=== PATIENT | male | born 1995 | race Caucasian/White ===

== ENCOUNTER 2025-07-30 22:20 | Emergency (ER) | payer SELFPAY ==
[2025-07-30 22:21] VITALS: BP 197/126
[2025-07-30 22:41] VITALS: BMI 30.6
[2025-07-30 22:49] VITALS: BP 174/120
[2025-07-30 23:00] VITALS: BP 180/118
[2025-07-30 23:06] LABS: Hematocrit 43.5 % (39.0-52.0); Hemoglobin 14.5 g/dL (13.0-18.0); Mean Corp Hgb Conc. 33.3 g/dL (33.0-37.0); Mean Corpuscular Volume 92.9 fL (80.0-94.0); Nucleated Red Blood Cells % 0 % (-); Platelet Count 252 10^3/uL (130-400); Red Cell Dist. Width 12.6 % (11.5-14.5)
[2025-07-30 23:25] LABS: ALT (SGPT) 52 U/L (0-50); AST (SGOT) 40 U/L (17-59); Albumin 4.9 g/dl (3.5-5.0); Alkaline Phosphatase 72 U/L (38-126); Blood Urea Nitrogen 7 mg/dl (9-20); Calcium 9.6 mg/dl (8.4-10.2); Carbon Dioxide 30 mmol/L (22-30); Chloride 98 mmol/L (98-107); Estimated Creatinine Clearance > 125 ml/min; Glucose 103 mg/dl (70-99); Potassium 4.6 mmol/L (3.5-5.1); Sodium 137 mmol/L (135-145); Total Protein 7.7 g/dl (6.3-8.2); eGFR > 60.00
[2025-07-30 23:38] LABS: Troponin I < 0.012 ng/ml
[2025-07-30] MEDS: NITROSTAT (SUBLINGUAL) 0.4 MG SL (23:57)
[2025-07-31 00:14] VITALS: BP 162/99
[2025-07-31] MEDS: NITROSTAT (SUBLINGUAL) 0.4 MG SL ×2 (00:23→00:38)
--- NOTE | 2025-07-31 00:27 | ED.GENMED ---
History of Present Illness
General
Chief Complaint: Blood Pressure Problem
Source: patient
Exam Limitations: none
Time Seen by Provider: 07/30/25 23:05
Nursing documentation reviewed up to this point in time: agreed with
History of Present Illness
History of Present Illness:
30-year-old male past [facility] of hypertension daily drinker presenting to the emergency department today with concerns of chest pressure associated shortness of breath ongoing throughout the day today. Has been off his blood pressure medications
over the past 3 weeks typically takes amlodipine benazepril 5-20. Denies any recent trauma surgery immobilization no history of blood clots. Does drink 12 alcoholic beverages daily. Describes the chest pain as a pressure without specific
radiation. Not specifically exertional.
Review of Systems
Review of Systems
Allergies reviewed?: Yes
All Other Systems: ROS reviewed and negative except as documented in HPI and ROS
Phy Exam
Physical Exam
Physical Exam:
GENERAL: Alert , in no apparent distress
EYE: pupils equal and reactive
NECK: Supple, no significant adenopathy.
ENT: o/p clr, mmm.
CARDIAC: Regular rate and rhythm .
LUNGS: Clear breath sounds bilaterally, no acute respiratory distress, no wheezes/rales/rhonchi
ABDOMEN: Soft, without focal tenderness, no r/g, no cvat
NEUROLOGICAL: Alert and oriented, no focal neuro deficits
SKIN: Warm and dry, skin intact.
MUSCULOSKELETAL: No edema, well perfused.
PSYCH: Normal and appropriate interaction.
Course
Orders/Labs/Results
Orders:
Orders
07/30/25 22:24
Crisis Consult Urgent
Reason for Consult: depression ?SI
07/30/25 22:25
EKG [Electrocardiogram (*1)] Urgent
Reason for Study: Chest Pain
EKG- Treatment ONCE
07/30/25 22:57
Complete Blood Count/With Diff Urgent
Comprehensive Metabolic Panel Urgent
Troponin I Urgent
07/30/25 23:47
D-Dimer Urgent
07/30/25 23:53
Urine Drug Abuse Screen Urgent
Date Specimen was Collected: 07/30/25
Time Specimen was Collected: 23:55
Nitroglycerin Sublingual [Nitrostat (Sublingual)] 0.4 mg SL [id number] PRN
07/31/25 00:05
CR Chest - 2 Views Urgent
Reason For Exam: cp
07/31/25 01:41
EKG [Electrocardiogram (*1)] Urgent
Reason for Study: Chest Pain
EKG- Treatment ONCE
07/31/25 02:08
Troponin I Urgent
Abnormal Lab Results
07/30/25
22:57
RBC 4.68 L 10^6/uL
(4.70-6.10)
Absolute Monos (auto) 0.8 H 10^3/uL
(0.1-0.6)
Monocytes % 11.2 H %
(1.7-9.3)
BUN 7 L mg/dl
(9-20)
Glucose 103 H mg/dl
(70-99)
ALT 52 H U/L
(0-50)
07/30/25 22:57
07/30/25 22:57
Vital Signs
Initial and Last Documented VS:
Initial Vital Signs
Temp Pulse Resp BP Pulse Ox
98.5 F 106 22 197/126 98
07/30/25 22:21 07/30/25 22:21 07/30/25 22:21 07/30/25 22:21 07/30/25 22:21
Last Documented Vital Signs
Temp Pulse Resp BP Pulse Ox
98.5 F 75 15 145/96 96
07/30/25 22:21 07/31/25 01:15 07/31/25 01:15 07/31/25 01:00 07/31/25 01:15
MDM/Problems Addressed
MDM/Problems Addressed:
30-year-old male presenting to the emergency department today with concerns of chest pressure without specific radiation associated shortness of breath starting this morning. Does have a history of high blood pressure and has been off his normally
prescribed amlodipine benazepril over the past 3 weeks after moving from [place]. Does drink 12 alcoholic beverages daily. Here blood pressure elevated but patient was off medications for 3 weeks patient was given dose of nitro with very minimal
chest pain afterward with blood pressure improving. Symptoms very minimal throughout ER stay. No shortness of breath patient very comfortable on exam. Remainder vital signs normal. Labs unremarkable troponin negative x 2 D-dimer negative as
well. EKG nonischemic and unchanged with multiple EKGs here. Chest x-ray normal. Patient appears to be low risk for ACS very low risk for PE advised for close outpatient follow-up. Returm Precautions given.
*Pulse Oximetry
SaO2: 97
Oxygen Mode of Delivery: Room air
Patient hypoxic: no (96)
*Critical Care Note
Total Time (30-74mins, 75-104mins- exclusive of procedures): Not Applicable
ED Attending Note
-
Portions of this chart may have been created with voice recognition software.� Occasional wrong word or��sound alike� substitutions may have occurred due to the inherent limitations of voice recognition software.
Discharge Plan
Departure
Patient Disposition: Home (Routine Discharge)
Date of Disposition: 07/31/25
Time of Disposition: 03:01
Patient with high blood pressure during this ER visit?: Yes
Condition: Good
Covid-19: Not Applicable
Discharge Problem:
Chest pain, High blood pressure
Instructions: High Blood Pressure (DC), Chest Pain CBC Follow Up
Prescriptions:
New
amlodipine-benazepril 5-20 mg capsule
1 cap PO DAILY 14 Days Qty: 14 0RF
No Action
amlodipine-benazepril 5-20 mg Capsule
1 cap PO DAILY
Referrals:
NONE,* [Family Provider, Internal Medicine]
Activity Restrictions/Additional Instructions:
You came to the emergency department today with concerns of high blood pressure and chest pain. Here he had a reassuring assessment. Please follow closely with cardiology and your primary care doctor. Return for any worsening, new or concerning
symptoms.
Interventions
Interventions:
*Risk Screen - Suicide Last Done: 07/30/25 22:21
*General Assessment Last Done: 07/30/25 22:21
*Neglect/Abuse Screening Last Done: 07/30/25 22:21
*ED- Fall Risk Assessment Last Done: 07/30/25 22:50
*ED COVID-19 Vaccine History Last Done: 07/30/25 22:50
*ED Influenza Vaccine History Last Done: 07/30/25 22:50
ED- Cardiac Assessment Last Done: 07/30/25 22:50
ED- Neurological Assessment Last Done: 07/30/25 22:50
ED- Pulmonary Assessment Last Done: 07/30/25 22:50
Discharge Date and Time
Print Language: PASHTO
[2025-07-31 00:36] VITALS: BP 150/101
[2025-07-31 00:42] LABS: D-Dimer 0.29 ug/mlFEU (0.00-0.50)
[2025-07-31 00:44] VITALS: BP 144/88
[2025-07-31 01:00] VITALS: BP 145/96
[2025-07-31 01:30] VITALS: BP 145/99
[2025-07-31 02:00] VITALS: BP 147/101
[2025-07-31 02:49] LABS: Troponin I < 0.012 ng/ml
== END 2025-07-31 03:26 | disposition home or self-care (01) ==
LOC: EMR 22:20
PROVIDERS: Emergency Medicine; Physician Assistant; EMERGENCY PHYSICIAN Emergency Medicine
DX: R07.89 Other chest pain (principal); I10 Essential (primary) hypertension
CPT/HCPCS: 99284; 71046; 80053; 80306; 84484; 85025; 85379; 93005